=== PATIENT | male | born 1970 | race Caucasian/White ===

== ENCOUNTER → 2018-10-23 | Outpatient (REF) | payer BC ==
[~2018-10-23] MED LIST: CLI150 PO; DIP5L PO; DOC100 PO; GUAI600T PO; HYDR473S4 PO; IBU600 PO; LOR10/325 PO; MOXI400T28 PO; NAP500 PO; PRED-314 PO
[2018-10-23 12:06] LABS: PLATELET COUNT, AUTOMATED 186 K/uL (150-450)
== END ==
LOC: ZZSTITCHES 11:39
PROVIDERS: ATTEND Physician Assistant
DX: R06.02 Shortness of breath (principal); R09.02 Hypoxemia
CPT/HCPCS: 85025; 85379